=== PATIENT | female | born 1985 | race Caucasian/White ===

== ENCOUNTER 2017-11-23 15:24 | Outpatient (CLI) | payer OTHER ==
--- NOTE | 2017-11-23 16:30 | RAD ---
LUMBAR SPINE: 11/23/17 Three views. Lateral views taken with neutral, flexion and extension positions. HISTORY: Low back pain. The lumbar vertebrae maintain normal height and alignment. There is mild loss of disc space at L5-S1. The other disc spaces are maintained. Mild facet hypertrophy seen at L4-5 and L5-S1. No evidence of spondylolisthesis or spondylolysis. No significant change in alignment with flexion or extension. IMPRESSION: There are mild degenerative change in the lower lumbar spine as described. POS: DAYNA
--- NOTE | 2017-11-23 17:19 | MRI ---
MRI LUMBAR SPINE WITHOUT CONTRAST: 11/23/17 Multiplanar and multisequential imaging lumbar spine obtained. HISTORY: Low back pain. Lumbar vertebra maintain normal height and alignment. The disc spaces are maintained although there i s mild degenerative signal loss at L4-5 and L5-S1. No evidence of disc bulge or disc protrusion at L1-2, L2-3, or L3-4. No central canal or foraminal st enosis seen at any of these levels. At L4-5, there is an annular fissure with broad based bulge and a small central disc protrusion which indents the anterior thecal sac. Mild facet arthrosis. These changes result in mild central canal st enosis. there is an asymmetric bulge to the left which does encroach into the left foramina and may d isplace the exiting left L4 nerve root. At L5-S1, there is an annular fissure with a broad based bulge and small central protrusion. These ch anges contact both traversing S1 nerve roots within the canal. There is no significant impingement on the thecal sac. IMPRESSION: Annular fissure with small disc protrusion seen at L4-5 and at L5-S1 as described above. POS: ROSA
== END 2017-11-23 15:25 | disposition home or self-care (01) ==
LOC: TBSIIMAG 15:24
PROVIDERS: ATTEND Neurological Surgery
DX: M54.5 Low back pain (principal); M51.26 Other intervertebral disc displacement, lumbar region; M51.27 Other intervertebral disc displacement, lumbosacral region; M47.896 Other spondylosis, lumbar region
CPT/HCPCS: 72100; 72148

== ENCOUNTER 2018-12-10 09:29 | Inpatient (IN) | payer OTHER ==
[2018-12-10] MEDS ORDERED: Methylergonovine 0.2 MG/ML VIAL IM PRN (10:18)
[2018-12-10] MEDS ORDERED: Ondansetron PF 4 MG/2 ML Vial IVP PRN ×3 (10:18→17:04)
[2018-12-10] MEDS ORDERED: NS / Oxytocin 40 units/1000ml 1,000 ML IV PRN (10:18)
[2018-12-10] MEDS ORDERED: Acetaminophen 500 MG TAB PO PRN (10:18)
[2018-12-10] MEDS ORDERED: Ibuprofen 800 MG TAB PO PRN (10:18)
[2018-12-10] MEDS ORDERED: Butorphanol Tartrate 1 MG/ML VIAL SLOW IVP PRN (10:18)
[2018-12-10] MEDS ORDERED: Promethazine HCl 25 MG/ML VIAL IM PRN ×2 (10:18→12:13)
[2018-12-10] MEDS ORDERED: Diphenoxylate HCl/Atropine Tablet PO PRN ×2 (10:18)
[2018-12-10] MEDS ORDERED: Misoprostol 200 MCG TAB PR PRN (10:18)
[2018-12-10] MEDS ORDERED: Lidocaine 1% (PF) 30 ML VIAL SC PRN (10:18)
[2018-12-10] MEDS ORDERED: HYDROcodone/Acetaminophen 5/325 mg Tablet PO PRN ×2 (10:18)
[2018-12-10] MEDS ORDERED: Carboprost 250 MCG/ML AMP IM PRN (10:18)
[2018-12-10] MEDS ORDERED: Lactated Ringer's 1,000 ML IV SCH (10:30)
[2018-12-10 10:37] LABS: Hemoglobin 13.4 g/dL (12.0-16.0); Mean Corpuscular HGB CONC 34.3 g/dL (32.0-36.0); Mean Corpuscular Hemoglobin 32.7 pg (27.0-31.0); Mean Corpuscular Volume 95.2 fL (78.0-98.0); Mean Platelet Volume 8.1 fL (7.4-10.4); Platelet Count 210 thou/uL (130-400); RBC Distribution Width 11.5 % (11.5-14.5); Red Blood Cell (RBC) Count 4.09 mill/uL (4.20-5.40); White Blood Cell (WBC) Count 13.7 thou/uL (4.8-10.8)
[2018-12-10 10:52] VITALS: BMI 24.4
[2018-12-10 11:08] LABS: Syphilis Antibody Nonreactive (Nonreactive); Syphilis Antibody Index 0.03 S/CO (<1.00 Non-Reactive)
[2018-12-10 11:09] LABS: HBSAg Index 0.39 S/CO (0-0.99); Hep B Surf Ag Non-Reactive S/CO (NonReactive)
[2018-12-10] MEDS ORDERED: Fentanyl 4 mcg/Bup 0.1% Cadd 100 ML ONE (11:21)
[2018-12-10] MEDS ORDERED: Lidocaine 1.5%/Epinephrine 1:200,000 5 ML AMPUL IJ ONE (11:21)
[2018-12-10] MEDS ORDERED: diphenhydrAMINE 50 MG/ML VIAL IVP PRN (12:13)
[2018-12-10] MEDS ORDERED: Lactated Ringer's 500 ML IV PRN (12:13)
[2018-12-10] MEDS ORDERED: Acetaminophen 325 MG TAB PO PRN (12:13)
[2018-12-10] MEDS ORDERED: ePHEDrine/0.9% NaCl/PF SYRINGE 50 mg/10 ml SLOW IVP PRN (12:13)
[2018-12-10] MEDS ORDERED: Naloxone HCl 0.4 mg/ml Vial IVP PRN ×2 (12:13)
[2018-12-10] MEDS ORDERED: Eucerin (Mineral Oil/Petrolatum,White) 30 gm Jar TOP PRN (12:13)
[2018-12-10] MEDS ORDERED: Communication Order-Pharmacy FS SCH (12:15)
[2018-12-10] MEDS ORDERED: Fentanyl 4 mcg/Bupivacaine 0.1% Cassette 100 ML EPIDURAL SCH (12:15)
[2018-12-10] MEDS ORDERED: Benzocaine/Menthol 20-0.5% 60 ML CAN TOP PRN (17:04)
[2018-12-10] MEDS ORDERED: Zolpidem Tartrate 5 MG TAB PO PRN (17:04)
[2018-12-10] MEDS ORDERED: Lanolin Ointment 7 GM TUBE TOP PRN (17:04)
[2018-12-10] MEDS ORDERED: Preparation H Ointment 28 GM TUBE PR PRN (17:04)
[2018-12-10] MEDS ORDERED: Bisacodyl 10 MG SUPP PR PRN (17:04)
[2018-12-10] MEDS ORDERED: diphenhydrAMINE 25 MG CAP PO PRN (17:04)
[2018-12-10] MEDS ORDERED: Milk Of Magnesia 30 ML UDCUP PO PRN (17:04)
[2018-12-10] MEDS ORDERED: Misoprostol 200 MCG TAB VAG PRN (17:04)
[2018-12-10] MEDS ORDERED: Acetaminophen/Codeine 30-300mg Tablet PO PRN ×2 (17:04)
[2018-12-10] MEDS ORDERED: NS / Oxytocin 40 units/1000ml 1,000 ML IV SCH (17:15)
[2018-12-10] MEDS: Ibuprofen 800 MG TAB PO SCH (21:46)
[2018-12-10] MEDS: Docusate Calcium (SURFAK) 240 MG CAP PO SCH (21:46)
[2018-12-10] MEDS ORDERED: Bupivacaine/Epinephrine 0.25% 30 ML VIAL ONE (22:22)
[2018-12-11 04:26] LABS: Hemoglobin 10.8 g/dL (12.0-16.0); Mean Corpuscular HGB CONC 34.3 g/dL (32.0-36.0); Mean Corpuscular Hemoglobin 33.3 pg (27.0-31.0); Mean Corpuscular Volume 97.2 fL (78.0-98.0); Mean Platelet Volume 7.7 fL (7.4-10.4); Platelet Count 156 thou/uL (130-400); RBC Distribution Width 11.7 % (11.5-14.5); Red Blood Cell (RBC) Count 3.23 mill/uL (4.20-5.40); White Blood Cell (WBC) Count 13.7 thou/uL (4.8-10.8)
[2018-12-11] MEDS: Ibuprofen 800 MG TAB PO SCH ×3 (06:03→21:26)
[2018-12-11] MEDS: Docusate Calcium (SURFAK) 240 MG CAP PO SCH ×2 (08:40→21:25)
[2018-12-11] MEDS: Prenatal Vitamin 1 TAB PO SCH (08:41)
[2018-12-11] MEDS: Ferrous Sulfate 325 MG TAB PO SCH ×2 (08:42→17:19)
[2018-12-11] MEDS ORDERED: Adacel (T-DAP) 0.5 ML SYRINGE IM ONE (09:00)
[2018-12-11] MEDS ORDERED: Sodium Chloride 0.9% 10 ML ONE (13:14)
[2018-12-12] MEDS: Ibuprofen 800 MG TAB PO SCH (06:13)
[2018-12-12] MEDS: Docusate Calcium (SURFAK) 240 MG CAP PO SCH (09:29)
[2018-12-12] MEDS: Prenatal Vitamin 1 TAB PO SCH (09:29)
[2018-12-12] MEDS: Ferrous Sulfate 325 MG TAB PO SCH (09:30)
[2018-12-12 11:54] VITALS: BP 124/71; TEMP 98
== END 2018-12-12 12:58 | disposition home or self-care (01) | DRG 807 ==
LOC: L&D/OP 09:29 → L&D 10:44 → 3SE 21:04
PROVIDERS: ADMIT Obstetrics & Gynecology; ATTEND Obstetrics & Gynecology
PROC: 10D07Z6 Extraction of Products of Conception, Vacuum, Via Natural or Artificial Opening (ICD-10-PCS; principal; 2018-12-10)
PROC: 0KQM0ZZ Repair Perineum Muscle, Open Approach (ICD-10-PCS; 2018-12-10)
DX: O70.1 Second degree perineal laceration during delivery (principal); Z37.0 Single live birth; O99.02 Anemia complicating childbirth; Z3A.39 39 weeks gestation of pregnancy; O32.8XX0 Maternal care for other malpresentation of fetus, not applicable or unspecified; O89.4 Spinal and epidural anesthesia-induced headache during the puerperium; O69.81X0 Labor and delivery complicated by cord around neck, without compression, not applicable or unspecified; O77.0 Labor and delivery complicated by meconium in amniotic fluid
CPT/HCPCS: 36415; 51702; 62272; 85027; 86780; 86850; 86900; 86901; 87340; 99285; J2001; J3490

== ENCOUNTER 2018-12-13 15:15 | Emergency (ER) | payer OTHER ==
[2018-12-13] MEDS ORDERED: Metoclopramide HCl 10 MG/2 ML VIAL ONE (17:15)
[2018-12-13] MEDS ORDERED: Acetaminophen 500 MG TAB ONE (17:15)
[2018-12-13] MEDS ORDERED: diphenhydrAMINE 50 MG/ML VIAL ONE (17:15)
== END 2018-12-13 21:00 | disposition home or self-care (01) ==
LOC: ERS 15:15
DX: O89.4 Spinal and epidural anesthesia-induced headache during the puerperium (principal); O99.285 Endocrine, nutritional and metabolic diseases complicating the puerperium; E78.00 Pure hypercholesterolemia, unspecified
CPT/HCPCS: 62273; 96365; 96375; J1200; J2765

== ENCOUNTER 2019-05-17 16:25 | Outpatient (CLI) | payer OTHER ==
--- NOTE | 2019-05-17 17:53 | RAD ---
RADIOGRAPH LUMBAR SPINE 3 VIEWS: DATE: 05/17/2019 HISTORY: 33-year-old female with chronic low back pain with instability. TECHNIQUE: 3 lateral views in flexion, extension, and neutral. FINDINGS: It will be assumed that there are are 5 lumbar-type vertebrae. Alignment is normal. Vertebral body he ights and disc spaces are maintained. There is no evidence of fracture, significant osteophytes, or any other focal osseous abnormality. There is no instability between flexion and extension. IMPRESSION: Negative
--- NOTE | 2019-05-17 18:00 | MRI ---
MRI LUMBAR SPINE NONCONTRAST: DATE: 05/17/2019 HISTORY: 33-year-old female with chronic low back pain and instability. COMPARISON: 11/23/2017. FINDINGS: For the purposes of this report, it will be assumed that there are 5 lumbar-type vertebrae. Vertebral body heights are maintained. No spondylolisthesis. Conus medullaris terminates at L1. T12-L1:Normal L1-2:Normal. L2-3:Normal L3-4:Normal L4-5:Disc desiccation. No high-grade disc space narrowing. Prominent right lateral and the left later al Modic type I marrow edema of the inferior endplate. In addition to mild diffuse disc bulge, there is a broad-based, shallow focal central disc protrusion with annular fissure. This indents the ventral aspect of thecal sac and contacts the bilateral L5 nerve roots, especially the left. Minimal central spinal canal stenosis. No neural foraminal stenosis. No interval change. L5-S1:Disc desiccation. Mild disc space narrowing. Diffuse disc bulge. Small, shallow focal central d isc protrusion with tiny midline annular fissure abuts the bilateral S1 nerve roots without significant displacement. No central stenosis and no neural foraminal stenosis. No high-grade facet DJD at any level. No interval change overall. IMPRESSION: 1. Degenerative disc disease at L4-5 and L5-S1. 2. No high-grade central stenosis or any neural foraminal stenosis, at any level. 3. All levels superior to L4 are normal. 5. No interval change since last year.
== END 2019-05-17 16:26 | disposition home or self-care (01) ==
LOC: SCSMRI 16:25
PROVIDERS: ATTEND Neurological Surgery
DX: M54.5 Low back pain (principal); M51.36 Other intervertebral disc degeneration, lumbar region; M51.37 Other intervertebral disc degeneration, lumbosacral region
CPT/HCPCS: 72100; 72148